=== PATIENT | male | born 1935 | race Caucasian/White ===

== ENCOUNTER → 2016-08-17 | Outpatient (REF) | payer MEDICARE ==
[~2016-08-17] MED LIST: /ATOR40TA PO; /FERG32TA PO; /METO25TAB PO; /PANT40TA PO; ACET-654 PO; ACET650S3 PR; AMIO20TA PO; ASPI81CH PO; ASPI81TA4 PO; ATOR1TAB21 PO; ATOR40TA PO; BISA10SU27 PR; BISA5TAB29 PO; BISAC5TA PO; CARB300C7 PO; CARB400T PO; CHLOROTHALIDONE PO; CLOP75TA2 PO; COLA50CA3 PO; COUM1TAB17 PO; CRES40TA PO; DOCU100C PO; DULC10SU9 PR; ENEMENE3 PR; FERR325T PO; FLOM5CAP PO; FURO40TA2 PO; GABA300C2 PO; GLUC1KIT IM; GUAI5ELAC GT; HEPA50VL SQ; HUMA100I3 SC; INSUDET SC; INSUHUMDS SC; INSULADS SC; LANTINJ4 SC; LEVO500T32 PO; LISI10TA4 PO; LOPE2CA PO; MAALSUS18 PO; METO50TA2 PO; MILKSUS5 PO; MIRT1TAB PO; MULTIVIT/MINERALS PO; MYLATAB PO; NEUR300C PO; OMEP20CA3 PO; PANT40TA2 PO; PRIN10TA PO; SENN8.6T17 PO; TAMS0.4C PO; VITMTA PO; [UNRECOGNIZED DRUG - OTHER] PO; [UNRECOGNIZED DRUG - SUPPLY]
== END ==
PROVIDERS: ATTEND Internal Medicine
DX: I50.9 Heart failure, unspecified (principal); R06.02 Shortness of breath

== ENCOUNTER → 2016-08-17 | Outpatient (CLI) | payer MEDICARE ==
--- NOTE | 2016-08-17 12:53 | REP ---
Clinical: Shortness of breath. Technique: AP and lateral views. Comparison: 09/23/2015. Findings: Mediastinum and cardiac silhouette are stable with evidence for prior sternotomy, CABG, and valve replacement. Lung frederick demonstrate chronic changes to the right lung base without acute consolidation, effusion, or pneumothorax. Skeletal structures stable. Impression: Chronic stable changes. No acute cardiopulmonary process appreciated. Signed by Steffen Fry MD 08/17/2016 12:45 P
== END ==
LOC: M RAD 12:16
PROVIDERS: ATTEND Internal Medicine
DX: R06.02 Shortness of breath (principal)

== ENCOUNTER → 2016-08-21 | Outpatient (REF) | payer MEDICARE ==
[2016-08-21 11:57] LABS: ANION GAP 9 MEQ/L (8-16); BLOOD UREA NITROGEN 24 MG/DL (7-18); CARBON DIOXIDE LEVEL 30 MEQ/L (21-32); CHLORIDE LEVEL 101 MEQ/L (98-107); CREATININE FOR GFR 1.15 MG/DL (0.70-1.30); GLOMERULAR FILTRATION RATE > 60.0 (>42); GLUCOSE, FASTING 154 MG/DL (83-110); POTASSIUM SERUM 4.5 MEQ/L (3.5-5.1); SODIUM LEVEL 140 MEQ/L (136-145)
== END ==
PROVIDERS: ATTEND Internal Medicine
DX: I50.9 Heart failure, unspecified (principal)

== ENCOUNTER → 2016-09-27 | Outpatient (REF) | payer MEDICARE ==
[2016-09-27 10:08] LABS: MEAN CORPUSCULAR HEMOGLOBIN 30.1 pg (27.0-33.0); MEAN CORPUSCULAR VOLUME 91.4 fl (80.0-96.0); RED CELL DISTRIBUTION WIDTH 12.3 % (11.5-14.5)
[2016-09-27 10:32] LABS: ANION GAP 9 MEQ/L (8-16); BLOOD UREA NITROGEN 10 MG/DL (7-18); CALCIUM LEVEL 9.1 MG/DL (8.8-10.2); CARBON DIOXIDE LEVEL 29 MEQ/L (21-32); CHLORIDE LEVEL 97 MEQ/L (98-107); CREATININE FOR GFR 1.11 MG/DL (0.70-1.30); GLOMERULAR FILTRATION RATE > 60.0 (>42); GLUCOSE, FASTING 221 MG/DL (83-110); POTASSIUM SERUM 4.7 MEQ/L (3.5-5.1); SODIUM LEVEL 135 MEQ/L (136-145)
== END ==
PROVIDERS: ATTEND Internal Medicine
DX: I10 Essential (primary) hypertension (principal); D50.9 Iron deficiency anemia, unspecified

== ENCOUNTER → 2016-11-01 | Outpatient (REF) | payer MEDICARE ==
[2016-11-01 11:17] LABS: ALBUMIN 3.1 GM/DL (3.2-5.2); ALBUMIN/GLOBULIN RATIO 0.82 (1.00-1.93); ALKALINE PHOSPHATASE 146 U/L (45-117); ALT/SGPT 24 U/L (12-78); ANION GAP 7 MEQ/L (8-16); AST/SGOT 15 U/L (15-37); BILIRUBIN,TOTAL 0.2 MG/DL (0.2-1.0); BLOOD UREA NITROGEN 13 MG/DL (7-18); CARBAMAZEPINE (TEGRETOL) LEVEL 6.6 UG/ML (4.0-10.0); CARBON DIOXIDE LEVEL 31 MEQ/L (21-32); CHLORIDE LEVEL 97 MEQ/L (98-107); CREATININE FOR GFR 1.04 MG/DL (0.70-1.30); GLOMERULAR FILTRATION RATE > 60.0 (>42); GLUCOSE, FASTING 261 MG/DL (83-110); POTASSIUM SERUM 4.2 MEQ/L (3.5-5.1); SODIUM LEVEL 135 MEQ/L (136-145); TOTAL PROTEIN 6.9 GM/DL (6.4-8.2)
== END ==
PROVIDERS: ATTEND Internal Medicine
DX: E11.9 Type 2 diabetes mellitus without complications (principal)

== ENCOUNTER → 2016-11-09 | Outpatient (REF) | payer MEDICARE ==
--- NOTE | 2016-11-09 16:21 | REP ---
Chest, AP projection, two views: Comparison is the PA and lateral chest of 08/17/2016. There is an incomplete inspiratory effort. There are no focal infiltrates or pleural effusions. The visualized lung frederick are clear. Cardiac size appears normal. Sternotomy wires and prosthetic cardiac valve are again noted. The cardiac valve is seen to better advantage on the comparison lateral view. Impression: There are no acute cardiopulmonary findings. Signed by Feliciano Herman MD 11/09/2016 04:12 P
== END ==
PROVIDERS: ATTEND Internal Medicine
DX: R06.2 Wheezing (principal)

== ENCOUNTER → 2016-12-08 | Outpatient (REF) | payer MEDICARE ==
[2016-12-08 09:39] LABS: BASO % 0.1 % (0.0-1.0); EOS % 0.1 % (0.0-3.0); LARGE UNSTAINED CELL # 0.1 K/mm3 (0.0-0.4); LARGE UNSTAINED CELL % 0.5 % (0.0-4.0); LYMPH # 0.3 K/mm3 (1.5-4.5); LYMPH % 2.3 % (24.0-44.0); MEAN CORPUSCULAR HEMOGLOBIN 30.8 pg (27.0-33.0); MEAN CORPUSCULAR HGB CONC 33.4 g/dl (32.0-36.5); MEAN CORPUSCULAR VOLUME 92.5 fl (80.0-96.0); MONO # 0.7 K/mm3 (0.0-0.8); MONO % 5.5 % (0.0-5.0); NEUTROPHILS # 11.4 K/mm3 (1.8-7.7); NEUTROPHILS % 91.5 % (36.0-66.0); PLATELET COUNT, AUTOMATED 288 k/mm3 (150-450); RED CELL DISTRIBUTION WIDTH 12.1 % (11.5-14.5); WHITE BLOOD COUNT 12.5 K/mm3 (4.0-10.0)
[2016-12-08 09:48] LABS: ALBUMIN 2.9 GM/DL (3.2-5.2); ALBUMIN/GLOBULIN RATIO 0.81 (1.00-1.93); ALKALINE PHOSPHATASE 127 U/L (45-117); ALT/SGPT 18 U/L (12-78); ANION GAP 11 MEQ/L (8-16); AST/SGOT 15 U/L (15-37); BILIRUBIN,TOTAL 0.4 MG/DL (0.2-1.0); BLOOD UREA NITROGEN 11 MG/DL (7-18); CALCIUM LEVEL 8.5 MG/DL (8.8-10.2); CARBON DIOXIDE LEVEL 25 MEQ/L (21-32); CHLORIDE LEVEL 98 MEQ/L (98-107); CREATININE FOR GFR 1.02 MG/DL (0.70-1.30); GLOMERULAR FILTRATION RATE > 60.0 (>35); GLUCOSE, FASTING 173 MG/DL (83-110); SODIUM LEVEL 134 MEQ/L (136-145); TOTAL PROTEIN 6.5 GM/DL (6.4-8.2)
--- NOTE | 2016-12-08 11:55 | REP ---
CHEST, SINGLE VIEW: Single view of the chest is performed. Linear fibroatelectatic change is seen in each lung base. There is no acute infiltrate. The heart is not significantly enlarged. Mediastinal silhouette is unchanged. Multiple sternal wires and mediastinal clips are present. IMPRESSION: Stable chronic findings without evidence of acute infiltrate. Signed by Feliciano Grewal MD 12/08/2016 05:17 P
== END ==
PROVIDERS: ATTEND Internal Medicine
DX: R50.9 Fever, unspecified (principal)

== ENCOUNTER → 2016-12-09 | Outpatient (REF) | LOC: SKLAB3 12:35 | PROVIDERS: ATTEND Internal Medicine | DX: R50.9 Fever, unspecified (principal) ==

== ENCOUNTER → 2016-12-11 | Outpatient (REF) ==
[2016-12-11 10:18] LABS: BASO % 0.1 % (0.0-1.0); EOS % 0.5 % (0.0-3.0); LARGE UNSTAINED CELL # 0.1 K/mm3 (0.0-0.4); LARGE UNSTAINED CELL % 1.2 % (0.0-4.0); LYMPH # 1.3 K/mm3 (1.5-4.5); LYMPH % 12.7 % (24.0-44.0); MEAN CORPUSCULAR HEMOGLOBIN 31.1 pg (27.0-33.0); MEAN CORPUSCULAR HGB CONC 33.3 g/dl (32.0-36.5); MEAN CORPUSCULAR VOLUME 93.2 fl (80.0-96.0); MONO # 0.4 K/mm3 (0.0-0.8); MONO % 4.1 % (0.0-5.0); NEUTROPHILS # 7.6 K/mm3 (1.8-7.7); NEUTROPHILS % 81.5 % (36.0-66.0); PLATELET COUNT, AUTOMATED 306 k/mm3 (150-450); RED CELL DISTRIBUTION WIDTH 12.2 % (11.5-14.5); WHITE BLOOD COUNT 9.3 K/mm3 (4.0-10.0)
[2016-12-11 10:38] LABS: ANION GAP 9 MEQ/L (8-16); BLOOD UREA NITROGEN 16 MG/DL (7-18); CALCIUM LEVEL 8.7 MG/DL (8.8-10.2); CARBON DIOXIDE LEVEL 25 MEQ/L (21-32); CHLORIDE LEVEL 104 MEQ/L (98-107); CREATININE FOR GFR 1.06 MG/DL (0.70-1.30); GLOMERULAR FILTRATION RATE > 60.0 (>35); GLUCOSE, FASTING 212 MG/DL (83-110); SODIUM LEVEL 138 MEQ/L (136-145)
== END ==
PROVIDERS: ATTEND Internal Medicine
DX: R50.9 Fever, unspecified (principal); N41.9 Inflammatory disease of prostate, unspecified

== ENCOUNTER → 2016-12-12 | Outpatient (REF) | PROVIDERS: ATTEND Internal Medicine | DX: N40.1 Benign prostatic hyperplasia with lower urinary tract symptoms (principal) ==

== ENCOUNTER → 2016-12-15 | Outpatient (CLI) | payer MEDICARE ==
[~2016-12-15] MED LIST changes: +ISOVUE-370 76% 100ML VIAL (Q9967) As Ordered ONE
--- NOTE | 2016-12-15 14:32 | REP ---
CT study of the abdomen and pelvis without and with IV contrast: Without oral contrast. History: Abdominal pain. Elevated temperature. Comparison CT study July 14, 2015. CT contrast dose: 100 mL of Isovue [address] findings: Digital preliminary ornamental bronze worker radiograph demonstrates an unremarkable bowel gas pattern. The patient was apparently unable to raise the right arm and there is some spray artifact resulting from this. No focal hepatic or splenic lesion is seen. There are small bilateral pleural effusions noted, a new finding since the July 25, 2015 prior exam. The gallbladder is unremarkable. No adrenal lesion is seen on either side. 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 Question prior nephrectomy versus congenital absence. No pancreatic abnormality is observed. The right kidney enhances normally without evidence of hydronephrosis. No stone is seen. There is moderate colonic stool proximally and distally including the rectum, question constipation. No small bowel dilation is seen. No retroperitoneal mass or adenopathy is observed. The appendix is not visible but there is no CT evidence to suggest appendicitis. Urinary bladder, prostate and seminal vesicles are unremarkable. No abdominal wall defect is seen. No bony destructive lesion is seen. There is diffuse osteopenia. Impression: Moderate colonic stool. Absent left kidney. Small bilateral pleural effusions noted. No ascites. No acute abdominal or pelvic abnormality. Signed by Sebastian Jacobs MD 12/15/2016 03:07 P
== END ==
LOC: M RAD 10:32
PROVIDERS: ATTEND Internal Medicine
DX: R10.9 Unspecified abdominal pain (principal); J90 Pleural effusion, not elsewhere classified; Z90.5 Acquired absence of kidney
CPT/HCPCS: 74178; Q9967

== ENCOUNTER → 2016-12-27 | Outpatient (REF) | payer MEDICARE ==
[~2016-12-27] MED LIST changes: -ISOVUE-370 76% 100ML VIAL (Q9967) As Ordered ONE
[2016-12-27 08:12] LABS: MEAN CORPUSCULAR HEMOGLOBIN 31.1 pg (27.0-33.0); MEAN CORPUSCULAR VOLUME 94.1 fl (80.0-96.0); RED CELL DISTRIBUTION WIDTH 12.6 % (11.5-14.5); WHITE BLOOD COUNT 7.8 K/mm3 (4.0-10.0)
[2016-12-27 08:15] LABS: ANION GAP 7 MEQ/L (8-16); BLOOD UREA NITROGEN 9 MG/DL (7-18); CALCIUM LEVEL 9.3 MG/DL (8.8-10.2); CARBON DIOXIDE LEVEL 31 MEQ/L (21-32); CHLORIDE LEVEL 98 MEQ/L (98-107); CREATININE FOR GFR 0.88 MG/DL (0.70-1.30); GLOMERULAR FILTRATION RATE > 60.0 (>35); GLUCOSE, FASTING 88 MG/DL (83-110); POTASSIUM SERUM 4.4 MEQ/L (3.5-5.1); SODIUM LEVEL 136 MEQ/L (136-145)
== END ==
PROVIDERS: ATTEND Internal Medicine
DX: I10 Essential (primary) hypertension (principal)

== ENCOUNTER → 2017-01-03 | Outpatient (CLI) | payer MEDICARE ==
[~2017-01-03] MED LIST changes: +E-Z-GAS II EFFERVESCENT PACKET (SODIUM BICARB./CITRIC ACID/SIMETHICONE) As Ordered ONE; +E-Z-HD 98% w/w 340GM SUSP BTL As Ordered ONE; +E-Z-PAQUE 96% w/w SUSP 176GM BTL As Ordered ONE
--- NOTE | 2017-01-03 17:34 | REP ---
ESOPHAGRAM: The procedure was performed under the direct supervision of Dr. Grewal. The images were reviewed with Dr. Grewal. A single view PA chest x-ray is submitted as a naval designer film. There is no change compared to a previous chest x-ray performed on 12/08/2016. The exam is limited due to patient condition. The patient was unable to stand, therefore, contrast was given in the right lateral recumbent position. The patient has a history of aspiration and is on a nectar consistency diet. The patient was given thick and thin barium. With thin barium the patient did have an episode of aspiration. 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 There is shouldering. There is delayed passage of contrast. There is limited evaluation of the esophagus distal to the stricture due to the paucity of barium. IMPRESSION: 1. 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 There is delayed passage of contrast. 2. The patient did aspirate with thin barium. 2 minutes and 9 seconds of fluoroscopy time was utilized for this procedure. Reviewed by NICHO Banuelos 01/04/2017 08:24 AEdited and Signed by Feliciano Grewal MD 01/04/2017 07:21 P
== END ==
LOC: M RAD 10:21
PROVIDERS: ATTEND Nurse Practitioner Adult Health
DX: R13.10 Dysphagia, unspecified (principal)

== ENCOUNTER → 2017-01-25 | Outpatient (CLI) | payer MEDICARE ==
[~2017-01-25] VITALS: Ht 177.8 cm; Wt 74.8 kg
[~2017-01-25] MED LIST changes: -E-Z-GAS II EFFERVESCENT PACKET (SODIUM BICARB./CITRIC ACID/SIMETHICONE) As Ordered ONE; -E-Z-HD 98% w/w 340GM SUSP BTL As Ordered ONE; -E-Z-PAQUE 96% w/w SUSP 176GM BTL As Ordered ONE; +ELIQ5TAB PO; +LASI40TA PO; +LEVALBUTEROL 1.25 MG/0.5 ML CONCENTRATE NEB As Ordered ONE; +LIDOCAINE 2% INJ 100 MG/5 ML SDV (FOR ANES.) As Ordered ONE; +METO25TAB PO; +MILKSUS PO; +MIRA3350 PO; +NS 1,000 ML IV ONE; +OMEP40CA2 PO; +PRED10TA PO; +PROPOFOL 200 MG/20 ML VIAL As Ordered ONE; +PROS5TAB PO; +SENN8.6T7 PO; +TRES1INJ2 SC; +ZOLO25TA PO
--- NOTE | 2017-01-25 15:01 | ROOR ---
Patient Name: Manoj Minor Procedure Date: 01/25/2017 2:43 PM Date of : 1935 Age: 81 Room: [facility] Gender: Male Note Status: Finalized Procedure: Upper GI endoscopy Indications: Dysphagia, Abnormal UGI series Providers: Angel Sims Jr, MD Referring MD: Ping Duong DO Requesting Provider: Medicines: Propofol per Anesthesia Complications: No immediate complications. Procedure: Pre-Anesthesia Assessment: - Prior to the procedure, a History and Physical was performed, and patient medications and allergies were reviewed. The patient is competent. The risks and benefits of the procedure and the sedation options and risks were discussed with the patient. All questions were answered and informed consent was obtained. Patient identification and proposed procedure were verified by the physician and the nurse in the pre-procedure area and in the procedure room. Mental Status Examination: alert and oriented. Airway Examination: normal oropharyngeal airway and neck mobility. Respiratory Examination: clear to auscultation. CV Examination: normal. ASA Grade Assessment: III - A patient with severe systemic disease. After reviewing the risks and benefits, the patient was deemed in satisfactory condition to undergo the procedure. The anesthesia plan was to use moderate sedation / analgesia (conscious sedation). Immediately prior to administration of medications, the patient was re-assessed for adequacy to receive sedatives. The heart rate, respiratory rate, oxygen saturations, blood pressure, adequacy of pulmonary ventilation, and response to care were monitored throughout the procedure. The physical status of the patient was re-assessed after the procedure. The Endoscope was introduced through the mouth, and advanced to the middle third of esophagus. The patient tolerated the procedure. The upper GI endoscopy was performed with moderate difficulty due to a partially obstructing mass. Findings: The upper third of the esophagus was normal. A large, ulcerating mass with bleeding and stigmata of recent bleeding was found in the middle third of the esophagus, 30 cm from the incisors. The mass was completely obstructing and circumferential. Biopsies were taken with a cold forceps for histology. Impression: - Normal upper third of esophagus. 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 Biopsied. Recommendation: - Discharge patient to home (with escort). Angel Sims MD Angel Sims Jr, MD 01/25/2017 3:01:53 PM This report has been signed electronically. Number of Addenda: 0 Note Initiated On: 01/25/2017 2:43 PM Estimated Blood Loss: Estimated blood loss: none. Estimated blood loss was minimal.
[2017-01-25 15:30] VITALS: BP 132/60
== END ==
LOC: M SDC 14:15
PROVIDERS: ATTEND Surgery
DX: R13.10 Dysphagia, unspecified (principal)